=== PATIENT | female | born 1965 | race Caucasian/White ===

== ENCOUNTER 2020-01-29 14:30 | Emergency (ER) | payer OTHER ==
[~2020-01-29] VITALS: Ht 160 cm; Wt 105.2 kg
[2020-01-29] MEDS ORDERED: ZPAK PO (16:04)
[2020-01-29] MEDS ORDERED: TRIMETHOPRIM /P10 M1 OPHTHALMIC (16:04)
[2020-01-29] MEDS ORDERED: TESSALON PERLE100 MG PO (16:05)
[2020-01-29] MEDS ORDERED: PROAIR HFA8.5 GM INH (16:16)
[2020-01-29 16:18] VITALS: BP 148/78
== END 2020-01-29 16:19 | disposition home or self-care (01) ==
LOC: ER 14:30
DX: J06.9 Acute upper respiratory infection, unspecified (principal); H53.149 Visual discomfort, unspecified; H57.89 Other specified disorders of eye and adnexa; E11.9 Type 2 diabetes mellitus without complications; E78.00 Pure hypercholesterolemia, unspecified; Z88.5 Allergy status to narcotic agent; Z88.8 Allergy status to other drugs, medicaments and biological substances; Z88.0 Allergy status to penicillin